=== PATIENT | male | born 1990 | race American Indian/Alaskan Native ===

== ENCOUNTER 2017-02-09 04:11 | Emergency (ER) | payer BC, OTHER ==
[2017-02-09] MEDS ORDERED: ZOFRAN ODT ONE (05:46)
[2017-02-09] MEDS ORDERED: ZOFRAN ODT PO ONE (05:48)
[2017-02-09 06:14] LABS: Basophils % (Auto) 0.1 % (0.0-1.8); Hematocrit 46.3 % (35.5-45.6); Hemoglobin 14.7 gm/dl (11.8-15.2); Mean Corpuscular HGB Conc 32 % (32-34); Mean Corpuscular Volume 73 fl (84-94); Platelet Count 315 K/mm3 (140-440); Red Blood Count 6.38 M/mm3 (3.65-5.03); Red Cell Distribution Width 15.6 % (13.2-15.2); White Blood Count 9.2 K/mm3 (4.5-11.0)
[2017-02-09 06:33] LABS: Mean Corpuscular Hemoglobin 23 pg (28-32)
[2017-02-09 07:01] LABS: Anion Gap 22 mmol/L; BUN/Creatinine Ratio 15; Blood Urea Nitrogen 15 mg/dL (9-20); Calcium 10.5 mg/dL (8.4-10.2); Carbon Dioxide 26 mmol/L (22-30); Chloride 98.5 mmol/L (98-107); Glucose 110 mg/dL (75-100); Potassium 4.3 mmol/L (3.6-5.0); Sodium 142 mmol/L (137-145)
[2017-02-09] MEDS ORDERED: REGLAN IV PRN (11:31)
[2017-02-09] MEDS ORDERED: NACL 0.9% 1000 ML 1,000 ML IV ONE ×2 (11:31→12:30)
[2017-02-09] MEDS ORDERED: ZOFRAN IV ONE (12:27)
--- NOTE | 2017-02-09 12:30 | Emergency Department Report ---
ED N/V/D HPI - General Chief complaint: Nausea/Vomiting/Diarrhea Stated complaint: VOMITING,DEHYDRATION Time Seen by Provider: 02/09/17 11:29 Source: patient Mode of arrival: Ambulatory Limitations: No Limitations - History of Present Illness Initial comments: 26 YO PT WITH HIV C/O 2 DAYS OF NAUSEA, VOMITING WITHOUT DIARRHEA THAT BEGAN AFTER HE USED OVERTHE COUNTER SEX ENHANCING MEDICATION. THE NAUSEA/VOMITING BEGAN IMMEDIATELY . PT INITIALLY DID NOT REVEAL THAT HE WAS HIV POSITIVE AND THAT HE HAD USED SEXUAL ENHANCING MEDICATIONS WHICH STARTED HIS N/V AND NOW ABDOMINAL PAIN MD complaint: nausea, vomiting -: days(s) (3) Description of Vomiting: food contents Associated Abdominal Pain: Yes Radiation: none Severity: moderate Quality: cramping Consistency: intermittent Associated Symptoms: denies other symptoms - Related Data Previous Rx's Medication Instructions Recorded Last Taken Type Ranitidine HCl [Zantac] 300 mg PO QDAY #30 tablet 10/11/13 Unknown Rx Ondansetron [Zofran TAB] 8 mg PO Q8HR PRN #10 tablet 02/09/17 Unknown Rx oxyCODONE /ACETAMINOPHEN [Percocet 2 tab PO Q6HR PRN #12 tablet 02/09/17 Unknown Rx 5/325] Allergies Allergy/AdvReac Type Severity Reaction Status Date / Time No Known Allergies Allergy Unverified 10/10/13 22:20 ED Review of Systems ROS: Stated complaint: VOMITING,DEHYDRATION Other details as noted in HPI Constitutional: denies: chills, fever Eyes: denies: eye pain, eye discharge, vision change ENT: denies: ear pain, throat pain Respiratory: denies: cough, shortness of breath, wheezing Cardiovascular: denies: chest pain, palpitations Endocrine: no symptoms reported Gastrointestinal: abdominal pain. denies: diarrhea Genitourinary: denies: urgency, dysuria Musculoskeletal: denies: back pain, joint swelling, arthralgia Skin: denies: rash, lesions Neurological: denies: headache, weakness, paresthesias Psychiatric: denies: anxiety, depression Hematological/Lymphatic: denies: easy bleeding, easy bruising ED Past Medical Hx - Past Medical History Previous Medical History?: Yes Hx HIV: Yes - Family History Family history: hypertension - Social History Smoking Status: Never Smoker Substance Use Type: Marijuana, Other (OTC SEX ENHANCING MEDICATION) - Medications Home Medications: Home Medications Medication Instructions Recorded Confirmed Last Taken Type Ranitidine HCl [Zantac] 300 mg PO QDAY #30 tablet 10/11/13 Unknown Rx Ondansetron [Zofran TAB] 8 mg PO Q8HR PRN #10 tablet 02/09/17 Unknown Rx oxyCODONE /ACETAMINOPHEN [Percocet 2 tab PO Q6HR PRN #12 tablet 02/09/17 Unknown Rx 5/325] ED Physical Exam - General Limitations: No Limitations General appearance: alert, in no apparent distress - Head Head exam: Present: atraumatic, normocephalic - Eye Eye exam: Present: normal appearance, EOMI - ENT ENT exam: Present: mucous membranes moist - Neck Neck exam: Present: normal inspection - Respiratory Respiratory exam: Present: normal lung sounds bilaterally. Absent: respiratory distress, wheezes, rales - Cardiovascular Cardiovascular Exam: Present: regular rate, normal rhythm. Absent: systolic murmur, diastolic murmur, rubs, gallop - GI/Abdominal GI/Abdominal exam: Present: soft, tenderness (EPIGASTRIUM), normal bowel sounds , hyperactive bowel sounds. Absent: guarding, rebound, rigid - Rectal Rectal exam: Present: deferred - Extremities Exam Extremities exam: Present: normal inspection, full ROM - Back Exam Back exam: Present: normal inspection, full ROM - Neurological Exam Neurological exam: Present: alert, oriented X3, CN II-XII intact - Psychiatric Psychiatric exam: Present: normal affect, normal mood - Skin Skin exam: Present: warm, dry, intact, normal color. Absent: rash ED Course Vital Signs 02/09/17 02/09/17 02/09/17 04:20 05:37 14:06 Temperature 98.2 F 98.2 F Pulse Rate 107 H 96 H 75 Respiratory 18 18 18 Rate Blood Pressure 100/73 100/73 Blood Pressure 131/79 [Left] O2 Sat by Pulse 95 96 100 Oximetry ED Medical Decision Making - Lab Data Result diagrams: 02/09/17 05:47 02/09/17 05:47 Critical care attestation.: If time is entered above; I have spent that time in minutes in the direct care of this critically ill patient, excluding procedure time. ED Disposition Clinical Impression: Abdominal cramping Nausea & vomiting Qualifiers: Vomiting type: unspecified Vomiting Intractability: unspecified Qualified Code( s): R11.2 - Nausea with vomiting, unspecified Disposition: DC-01 TO HOME OR SELFCARE Is pt being admited?: No Does the pt Need Aspirin: No Condition: Stable Instructions: Acute Nausea and Vomiting (ED), Acute Abdominal Pain (ED) Additional Instructions: PLEASE DO NOT USE DRUGS AND DO NOT USE OVER THE COUNTER SEX ENHANCING MEDICATIONS. PLEASE ASK YOUR DR TO PRESCRIBE VIAGRA OR CIALIS PLEASE FOLLOW UP WITH YOUR DR IN 2 DAYS OR RETURN TO THE ER FOR ANY INCREASE OF YOUR SYMPTOMS OR ANY CONCERNS. Prescriptions: Ondansetron [Zofran TAB] 8 mg PO Q8HR PRN #10 tablet PRN Reason: Nausea And Vomiting oxyCODONE /ACETAMINOPHEN [Percocet 5/325] 2 tab PO Q6HR PRN #12 tablet PRN Reason: Pain Referrals: ARPIT BREWER MD [Primary Care Provider] - 3-5 Days Time of Disposition: 16:10
[2017-02-09 12:56] LABS: Alanine Aminotransferase 12 units/L (7-56); Albumin 5.3 g/dL (3.9-5); Albumin/Globulin Ratio 1.6 %; Alkaline Phosphatase 71 units/L (35-129); Total Protein 8.7 g/dL (6.3-8.2)
[2017-02-09 12:57] LABS: Bilirubin,Direct < 0.2 mg/dL (0-0.2); Bilirubin,Indirect 0.7 mg/dL
--- NOTE | 2017-02-09 13:43 | XRay Report ---
ABDOMINAL SERIES: History: Nausea and vomiting. Erect chest film shows no acute or significant changes involving the heart or lung lynn. There is no evidence of free air beneath the diaphragms. The gas pattern within the abdomen is unremarkable. There is no evidence of bowel dilatation, significant air-fluid levels, or masses. Organ shadows are unremarkable. IMPRESSION: Abdominal series within normal limits.
[2017-02-09 14:07] VITALS: BP 131/79
--- NOTE | 2017-02-09 15:32 | Cat Scan Report ---
CT ABDOMEN PELVIS WITH CONTRAST: HISTORY: abdominal pain, nausea and vomiting, HIV. COMPARISON: Abdominal series performed the same day. TECHNIQUE: Helical CT in 1.25mm intervals following IV contrast. Sagittal and coronal reconstructions. FINDINGS: Lung bases: Normal. Liver: Normal. Biliary system: Normal. Pancreas: Normal. Spleen: Normal. Kidneys/ureters/bladder: In or 2 punctate nonobstructing stones are identified in the left kidney. The right kidney, ureters and bladder are unremarkable. Adrenal glands: Normal. Aorta: Normal. Intestines: Unremarkable given no oral contrast was administered. Appendix: Normal. Pelvic viscera: Normal. Ascites: None. Adenopathy: None. Musculoskeletal: Normal. IMPRESSION: Nonobstructing punctate left renal stones. No acute process is appreciated.
[2017-02-09] MEDS ORDERED: MORPHINE IV ONE (15:50)
[2017-02-09 15:54] LABS: Urine Drugs of Abuse Note Disclamer
[2017-02-09 16:03] LABS: Bilirubin,Urine NEG (Negative); Blood,Urine NEG (Negative); Ketones,Urine 20 mg/dL (Negative); Leukocyte Esterase,Urine NEG (Negative); Mucus,Urine 1+ /HPF; Nitrite,Urine NEG (Negative); Protein,Urine <15 mg/dL mg/dL (Negative)
[2017-02-09 16:04] LABS: RBC,Urine < 1.0 /HPF (0.0-6.0)
== END 2017-02-09 16:23 | disposition home or self-care (01) ==
LOC: ED 04:11
DX: R10.13 Epigastric pain (principal); R11.2 Nausea with vomiting, unspecified; F12.10 Cannabis abuse, uncomplicated
CPT/HCPCS: 36415; 74022; 74177; 80048; 80074; 80307; 81001; 82962; 83690; 85025; 96361; 96374; 96375; 99284; J2270; J2405; J2765; J7030; Q9967; Q0162